=== PATIENT | male | born 1950 | race Caucasian/White ===

== ENCOUNTER → 2017-03-14 | Outpatient (CLI) | payer MEDICARE | END | disposition home or self-care (01) | LOC: EDSTATUS 03-12 14:22 → ROC 08:05 | PROVIDERS: ATTEND Radiology Radiation Oncology | DX: R22.1 Localized swelling, mass and lump, neck (principal); R91.8 Other nonspecific abnormal finding of lung field; R21 Rash and other nonspecific skin eruption; Z92.3 Personal history of irradiation | CPT/HCPCS: 99212; G0463 ==

== ENCOUNTER → 2017-03-20 | Outpatient (CLI) | payer MEDICARE ==
[~2017-03-20] MED LIST: OMNIPAQUE 350 MG/ML, 150 ML BOTTLE ONE
== END | disposition home or self-care (01) ==
LOC: CFH 11:00
PROVIDERS: ATTEND Internal Medicine
DX: C32.1 Malignant neoplasm of supraglottis (principal); C76.0 Malignant neoplasm of head, face and neck; I70.0 Atherosclerosis of aorta; J90 Pleural effusion, not elsewhere classified; R91.8 Other nonspecific abnormal finding of lung field; C78.01 Secondary malignant neoplasm of right lung; R59.0 Localized enlarged lymph nodes; K57.30 Diverticulosis of large intestine without perforation or abscess without bleeding
CPT/HCPCS: 70491; 71260; 74177; Q9967

== ENCOUNTER → 2017-06-17 | Outpatient (CLI) | payer MEDICARE | END | disposition home or self-care (01) | LOC: CFH 11:37 | PROVIDERS: ATTEND Internal Medicine | DX: C32.1 Malignant neoplasm of supraglottis (principal); C76.0 Malignant neoplasm of head, face and neck; I70.209 Unspecified atherosclerosis of native arteries of extremities, unspecified extremity; R91.8 Other nonspecific abnormal finding of lung field; M87.851 Other osteonecrosis, right femur; M87.852 Other osteonecrosis, left femur; N40.0 Benign prostatic hyperplasia without lower urinary tract symptoms; Z85.819 Personal history of malignant neoplasm of unspecified site of lip, oral cavity, and pharynx | CPT/HCPCS: 70491; 71260; 74177; Q9967 ==

== ENCOUNTER → 2017-06-24 | Outpatient (CLI) | payer MEDICARE | END | disposition home or self-care (01) | LOC: ROC 08:14 | PROVIDERS: ATTEND Radiology Radiation Oncology | DX: C76.0 Malignant neoplasm of head, face and neck (principal); C78.00 Secondary malignant neoplasm of unspecified lung | CPT/HCPCS: 99212; G0463 ==

== ENCOUNTER → 2017-11-29 | Outpatient (CLI) | payer MEDICARE | END | disposition home or self-care (01) | LOC: CFH 11:12 | PROVIDERS: ATTEND Internal Medicine | DX: N40.0 Benign prostatic hyperplasia without lower urinary tract symptoms (principal); R91.1 Solitary pulmonary nodule; J98.4 Other disorders of lung; C14.0 Malignant neoplasm of pharynx, unspecified; C61 Malignant neoplasm of prostate; C78.02 Secondary malignant neoplasm of left lung; C32.1 Malignant neoplasm of supraglottis; D70.1 Agranulocytosis secondary to cancer chemotherapy | CPT/HCPCS: 70491; 71260; 74177; Q9967 ==

== ENCOUNTER → 2017-12-18 | Outpatient (CLI) | payer MEDICARE | END | disposition home or self-care (01) | LOC: ROC 07:59 | PROVIDERS: ATTEND Radiology Radiation Oncology | DX: C76.0 Malignant neoplasm of head, face and neck (principal); C78.00 Secondary malignant neoplasm of unspecified lung | CPT/HCPCS: 99212; G0463 ==

== ENCOUNTER → 2018-01-10 | Outpatient (CLI) | payer MEDICARE | END | disposition home or self-care (01) | LOC: RAD 14:15 | PROVIDERS: ATTEND Internal Medicine | DX: J98.4 Other disorders of lung (principal); C32.1 Malignant neoplasm of supraglottis | CPT/HCPCS: 71275 ==

== ENCOUNTER → 2018-03-03 | Outpatient (CLI) | payer MEDICARE | LOC: ROC 07:19 | PROVIDERS: ATTEND Radiology Radiation Oncology | DX: Z08 Encounter for follow-up examination after completed treatment for malignant neoplasm (principal); C76.0 Malignant neoplasm of head, face and neck | CPT/HCPCS: 99212; G0463 ==

== ENCOUNTER → 2018-06-11 | Outpatient (CLI) | payer MEDICARE | END | disposition home or self-care (01) | LOC: PETCFH 13:21 | PROVIDERS: ATTEND Internal Medicine | DX: C32.1 Malignant neoplasm of supraglottis (principal); R91.1 Solitary pulmonary nodule | CPT/HCPCS: 78815; A9552 ==

== ENCOUNTER → 2018-10-09 | Outpatient (CLI) | payer MEDICARE ==
[~2018-10-09] MED LIST changes: +ALBU0.63 NEB; +ALBU8.5H8 INH; +CHOL2000 PO; +LISI40TA PO; +MOME13HF INH; -OMNIPAQUE 350 MG/ML, 150 ML BOTTLE ONE; +PEMB100V INJ; +SIMV20TA3 PO; +TIOT18CA INH
== END | disposition home or self-care (01) ==
LOC: PETCFH 08:17
PROVIDERS: ATTEND Internal Medicine
DX: K57.30 Diverticulosis of large intestine without perforation or abscess without bleeding (principal); C32.1 Malignant neoplasm of supraglottis
CPT/HCPCS: 78815; A9552

== ENCOUNTER → 2018-10-13 | Outpatient (CLI) | payer MEDICARE | END | disposition home or self-care (01) | LOC: ROC 07:50 | PROVIDERS: ATTEND Radiology Radiation Oncology | DX: Z08 Encounter for follow-up examination after completed treatment for malignant neoplasm (principal); C78.02 Secondary malignant neoplasm of left lung | CPT/HCPCS: 99212; G0463 ==

== ENCOUNTER → 2019-01-01 | Outpatient (CLI) | payer MEDICARE ==
[~2019-01-01] MED LIST changes: +OMNIPAQUE 350 MG/ML, 150 ML BOTTLE ONE
== END | disposition home or self-care (01) ==
LOC: CFH 07:47
PROVIDERS: ATTEND Internal Medicine
DX: J43.9 Emphysema, unspecified (principal); C32.1 Malignant neoplasm of supraglottis; I70.0 Atherosclerosis of aorta; R91.8 Other nonspecific abnormal finding of lung field; R59.9 Enlarged lymph nodes, unspecified; M47.819 Spondylosis without myelopathy or radiculopathy, site unspecified; M85.88 Other specified disorders of bone density and structure, other site
CPT/HCPCS: 70491; 71260; 74177; Q9967

== ENCOUNTER → 2019-01-19 | Outpatient (CLI) | payer MEDICARE ==
[~2019-01-19] MED LIST changes: -OMNIPAQUE 350 MG/ML, 150 ML BOTTLE ONE
== END | disposition home or self-care (01) ==
LOC: ROC 07:33
PROVIDERS: ATTEND Radiology Radiation Oncology
DX: Z08 Encounter for follow-up examination after completed treatment for malignant neoplasm (principal); C78.02 Secondary malignant neoplasm of left lung
CPT/HCPCS: 99212; G0463

== ENCOUNTER → 2019-05-07 | Outpatient (CLI) | payer MEDICARE ==
[~2019-05-07] MED LIST changes: +OMNIPAQUE 350 MG/ML, 100ML BOTTLE ONE
== END | disposition home or self-care (01) ==
LOC: CFH 07:44
PROVIDERS: ATTEND Internal Medicine
DX: C32.1 Malignant neoplasm of supraglottis (principal)
CPT/HCPCS: 71260; 74177; Q9967

== ENCOUNTER → 2019-10-19 | Outpatient (CLI) | payer MEDICARE | END | disposition home or self-care (01) | LOC: CFH 09:01 | PROVIDERS: ATTEND Internal Medicine | DX: K57.10 Diverticulosis of small intestine without perforation or abscess without bleeding (principal); R59.9 Enlarged lymph nodes, unspecified | CPT/HCPCS: 71260; 74177; Q9967 ==

== ENCOUNTER 2020-01-18 07:12 | Outpatient (CLI) | payer MEDICARE ==
[~2020-01-18 07:12] MED LIST changes: -OMNIPAQUE 350 MG/ML, 100ML BOTTLE ONE; +SIMV20TA19 PO; -SIMV20TA3 PO
== END 2020-01-18 23:59 | disposition home or self-care (01) ==
LOC: ROC 07:12
PROVIDERS: ATTEND Radiology Radiation Oncology
DX: C32.1 Malignant neoplasm of supraglottis (principal); C78.02 Secondary malignant neoplasm of left lung; J98.4 Other disorders of lung; Z88.0 Allergy status to penicillin
CPT/HCPCS: 99213; G0463

== ENCOUNTER 2020-02-17 07:12 | Outpatient (CLI) | payer MEDICARE | END 2020-02-17 23:59 | disposition home or self-care (01) | LOC: PETCFH 07:12 | PROVIDERS: ATTEND Radiology Radiation Oncology | DX: C78.02 Secondary malignant neoplasm of left lung (principal); I25.10 Atherosclerotic heart disease of native coronary artery without angina pectoris; R91.8 Other nonspecific abnormal finding of lung field; M87.852 Other osteonecrosis, left femur; M87.851 Other osteonecrosis, right femur | CPT/HCPCS: 78815; A9552 ==

== ENCOUNTER 2020-02-29 07:21 | Outpatient (CLI) | payer MEDICARE | END 2020-02-29 23:59 | disposition home or self-care (01) | LOC: ROC 07:21 | PROVIDERS: ATTEND Radiology Radiation Oncology | DX: C78.02 Secondary malignant neoplasm of left lung (principal); J44.9 Chronic obstructive pulmonary disease, unspecified; E88.01 Alpha-1-antitrypsin deficiency | CPT/HCPCS: 99212; G0463 ==

== ENCOUNTER → 2020-07-04 | Outpatient (CLI) | payer MEDICARE | END | disposition home or self-care (01) | LOC: CFH 08:57 | PROVIDERS: ATTEND Radiology Radiation Oncology | DX: C78.02 Secondary malignant neoplasm of left lung (principal) | CPT/HCPCS: 71250 ==

== ENCOUNTER → 2020-07-21 | Outpatient (CLI) | payer MEDICARE | END | disposition home or self-care (01) | LOC: PETCFH 07:40 | PROVIDERS: ATTEND Radiology Radiation Oncology | DX: C78.02 Secondary malignant neoplasm of left lung (principal); R91.8 Other nonspecific abnormal finding of lung field; R91.1 Solitary pulmonary nodule | CPT/HCPCS: 78815; A9552 ==

== ENCOUNTER → 2020-09-15 | Outpatient (CLI) | payer MEDICARE | END | disposition home or self-care (01) | LOC: CFH 08:25 | PROVIDERS: ATTEND Radiology Radiation Oncology | DX: C78.02 Secondary malignant neoplasm of left lung (principal); I10 Essential (primary) hypertension; R91.8 Other nonspecific abnormal finding of lung field | CPT/HCPCS: 71250 ==

== ENCOUNTER → 2020-09-26 | Outpatient (CLI) | payer MEDICARE | END | disposition home or self-care (01) | LOC: ROC 07:33 | PROVIDERS: ATTEND Radiology Radiation Oncology | DX: Z08 Encounter for follow-up examination after completed treatment for malignant neoplasm (principal); R91.8 Other nonspecific abnormal finding of lung field; I10 Essential (primary) hypertension; Z85.118 Personal history of other malignant neoplasm of bronchus and lung | CPT/HCPCS: 99442 ==

== ENCOUNTER → 2020-12-16 | Outpatient (CLI) | payer MEDICARE ==
[~2020-12-16] MED LIST changes: -LISI40TA PO; +LISI40TA9 PO; +OMNIPAQUE 350 MG/ML, 100ML BOTTLE ONE
== END | disposition home or self-care (01) ==
LOC: EDSTATUS 12-15 11:00 → CFH 13:38 → EDSTATUS 15:00
PROVIDERS: ATTEND Internal Medicine
DX: C78.7 Secondary malignant neoplasm of liver and intrahepatic bile duct (principal); C32.1 Malignant neoplasm of supraglottis
CPT/HCPCS: 71260; 74177; Q9967